=== PATIENT | male | born 1975 | race American Indian/Alaskan Native ===

== ENCOUNTER 2017-04-16 23:46 | Emergency (ER) | payer OTHER ==
[2017-04-17] MEDS ORDERED: ASPIRIN PO ONE (00:19)
[2017-04-17 00:50] LABS: Basophils # (Auto) 0.1 K/mm3 (0.0-0.1); Eosinophils # (Auto) 0.3 K/mm3 (0.0-0.4); Hematocrit 36.8 % (35.5-45.6); Hemoglobin 11.7 gm/dl (11.8-15.2); Lymphocytes # (Auto) 2.8 K/mm3 (1.2-5.4); Lymphocytes % (Auto) 27.3 % (13.4-35.0); Mean Corpuscular HGB Conc 32 % (32-34); Mean Corpuscular Volume 72 fl (84-94); Monocytes # (Auto) 0.7 K/mm3 (0.0-0.8); Red Blood Count 5.08 M/mm3 (3.65-5.03); Red Cell Distribution Width 15.2 % (13.2-15.2)
[2017-04-17 00:57] LABS: Mean Corpuscular Hemoglobin 23 pg (28-32); Platelet Count 194 K/mm3 (140-440)
--- NOTE | 2017-04-17 01:05 | Emergency Department Report ---
ED Chest Pain HPI - General Chief Complaint: Chest Pain Stated Complaint: CHEST PAIN Time Seen by Provider: 04/17/17 00:34 Source: patient Mode of arrival: Ambulatory Limitations: No Limitations - History of Present Illness Initial Comments: 42-year-old male presents to the emergency department, driving himself in to be seen, with complaint of some chest pain and bilateral arm numbness that started earlier in the day. He felt it prior to work, but it worsened once he got to work. The chest pain was a dull pain to the top of the chest. The arm numbness went down both arms but it was more of a decreased sensation than true complete numbness. There were no motor deficits. He took some Tylenol for his symptoms prior to presentation. Currently the patient is asymptomatic but says he came in to be seen because "I wanted to get checked out." He denies any shortness of breath, back pain, nausea, vomiting or diaphoresis. No recent travel or sick contacts at home. He has a past medical history of [id number] diabetes. He is an occasional tobacco smoker but denies any illicit drug use. His primary care physician is a Dr. You. Severity scale (0 -10): 7 - Related Data Previous Rx's Medication Instructions Recorded Last Taken Type HYDROcodone/APAP 7.5-325 [[place] 1 each PO Q6HR PRN #20 tablet 10/22/13 Unknown Rx 7.5/325 mg] Allergies Allergy/AdvReac Type Severity Reaction Status Date / Time No Known Allergies Allergy Unverified 10/22/13 08:23 Heart Score - HEART Score History: Slightly suspicious EKG: Normal Age: < 45 Risk factors: 1-2 risk factors Troponin: < normal limit HEART Score: 1 - Critical Actions Critical Actions: 0-3 pts:0.9-1.7%risk of adverse cardiac event.Candidate for discharge ED Review of Systems ROS: Stated complaint: CHEST PAIN Other details as noted in HPI Comment: All other systems reviewed and negative Constitutional: denies: chills, fever Eyes: denies: eye pain, eye discharge, vision change ENT: denies: ear pain, throat pain Respiratory: denies: cough, shortness of breath, wheezing Cardiovascular: chest pain. denies: palpitations Gastrointestinal: denies: abdominal pain, nausea, diarrhea Genitourinary: denies: urgency, dysuria Musculoskeletal: denies: back pain, joint swelling, arthralgia Skin: denies: rash, lesions Neurological: numbness. denies: headache ED Past Medical Hx - Past Medical History Hx Diabetes: Yes - Surgical History Hx Appendectomy: Yes - Social History Smoking Status: Current Every Day Smoker Substance Use Type: None - Medications Home Medications: Home Medications Medication Instructions Recorded Confirmed Last Taken Type HYDROcodone/APAP 7.5-325 [[place] 1 each PO Q6HR PRN #20 tablet 10/22/13 Unknown Rx 7.5/325 mg] ED Physical Exam - General Limitations: No Limitations - Other Other exam information: GENERAL: The patient is well-developed well-nourished. HENT: Normocephalic. Atraumatic. Patient has moist mucous membranes. EYES: Extraocular motions are intact. Pupils equal reactive to light bilaterally. NECK: Supple. Trachea is midline. CHEST/LUNGS: Clear to auscultation. There is no respiratory distress noted. HEART/CARDIOVASCULAR: Regular. There is no tachycardia. There is no murmur. ABDOMEN: Abdomen is soft, nontender. Patient has normal bowel sounds. There is no abdominal distention. SKIN: Skin is warm and dry. NEURO: The patient is awake, alert, and oriented. The patient is cooperative. The patient has no focal neurologic deficits. The patient has normal speech. MUSCULOSKELETAL: There is no tenderness or deformity. There is no limitation range of motion. There is no evidence of acute injury. ED Course Vital Signs 04/17/17 04/17/17 04/17/17 00:15 00:20 00:21 Temperature 98.1 F Pulse Rate 85 85 Respiratory 18 18 Rate Blood Pressure 132/89 [Left] O2 Sat by Pulse 99 99 Oximetry SHERIE score - Sherie Score Age > 65: (0) No Aspirin use within the Past 7 Days: (0) No 3 or more CAD Risk Factors: (0) No 2 or more Angina events in past 24 hrs: (1) Yes Known CAD with more than 50% Stenosis: (0) No Elevated Cardiac Markers: (0) No ST Deviation Greater than 0.5mm: (0) No SHERIE Score: 1 ED Medical Decision Making - Lab Data Result diagrams: 04/17/17 00:25 04/17/17 00:25 - EKG Data -: EKG Interpreted by Me EKG shows normal: sinus rhythm, axis, intervals, QRS complexes, ST-T waves Rate: normal - EKG Data When compared to previous EKG there are: previous EKG unavailable Interpretation: normal EKG - Radiology Data Radiology results: image reviewed interpreted by me: Chest x-ray does not show any acute process. There are no pleural effusions, obvious pneumonia and there is no pneumothorax. - Medical Decision Making The patient presented with the complaint of some chest pain that started earlier today but has resolved prior to presentation. He has normal sounding heart and lungs on auscultation. EKG is normal without ST elevation MT, ischemia or dysrhythmia. Labs have been unremarkable as well including negative troponins 2. The patient is low on the heart score criteria and has a SHERIE score of one if his pain is considered angina and 0 if not. He does not have any complaints of shortness of breath. He is low on the well's score criteria and negative on the pulmonary embolism rule out criteria. Vital signs stable throughout his ED course. He appears safe for discharge home at this time. He has been given a referral for a local mixer crane operator and has been encouraged to return to the emergency Department with any worsening of his symptoms or any acute distress. - Differential Diagnosis MT, costochondritis, GERD, pneumonia Critical Care Time: No Critical care attestation.: If time is entered above; I have spent that time in minutes in the direct care of this critically ill patient, excluding procedure time. ED Disposition Clinical Impression: Chest pain Qualifiers: Chest pain type: unspecified Qualified Code(s): R07.9 - Chest pain, unspecified Disposition: DC-01 TO HOME OR SELFCARE Is pt being admited?: No Condition: Stable Instructions: Chest Pain (ED) Additional Instructions: Please follow up with a primary care physician in the next few days if possible. I have given you a referral for a local mixer crane operator, Dr. Winchester, to follow-up regarding her chest pains. Return to the emergency department with any return or worsening of your symptoms or with any acute distress. Referrals: AMRITA WINCHESTER MD [Staff Physician] - 3-5 Days Time of Disposition: 04:38
--- NOTE | 2017-04-17 01:32 | XRay Report ---
FINAL REPORT EXAM: XR CHEST ROUTINE 2V HISTORY: Chest pain TECHNIQUE: PA and lateral views of the chest were obtained. PRIORS: None. FINDINGS: There are no focal consolidations to suggest pneumonia. No large pleural effusion. No pneumothorax. Cardiac silhouette and mediastinal structures are unremarkable. No acute osseous abnormality identified. IMPRESSION: No radiographic evidence of acute cardiopulmonary disease.
[2017-04-17 02:10] LABS: BUN/Creatinine Ratio 11; Blood Urea Nitrogen 8 mg/dL (9-20); Calcium 8.9 mg/dL (8.4-10.2); Hemolysis Index 113
[2017-04-17 06:09] VITALS: BP 126/81
== END 2017-04-17 06:09 | disposition home or self-care (01) ==
LOC: ED 23:46
DX: R07.9 Chest pain, unspecified (principal); R20.0 Anesthesia of skin; E11.9 Type 2 diabetes mellitus without complications; F17.200 Nicotine dependence, unspecified, uncomplicated; Z90.49 Acquired absence of other specified parts of digestive tract
CPT/HCPCS: 36415; 71046; 80048; 84484; 85025; 93005; 93010; 99284

== ENCOUNTER 2018-08-18 18:22 | Emergency (ER) | payer OTHER ==
--- NOTE | 2018-08-18 18:33 | Emergency Department Report ---
Blank Doc - Documentation Documentation: This is a 43-year-old male that presents with right knee pain. This initial assessment/diagnostic orders/clinical plan/treatment(s) is/are subject to change based on patient's health status, clinical progression and re- assessment by fellow clinical providers in the ED. Further treatment and workup at subsequent clinical providers discretion. Patient/guardians urged not to elope from the ED as their condition may be serious if not clinically assessed and managed. Initial orders include: 1- Patient sent to [facility] for further evaluation and treatment 2- xray knee
[2018-08-18] MEDS ORDERED: TORADOL IM ONE (19:02)
[2018-08-18] MEDS ORDERED: PERCOCET 5/325 PO ONE (19:03)
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
[2018-08-18 20:34] VITALS: BP 117/78
== END 2018-08-18 21:03 | disposition home or self-care (01) ==
LOC: ED 18:22
DX: M25.561 Pain in right knee (principal); M25.461 Effusion, right knee; E11.9 Type 2 diabetes mellitus without complications; F17.200 Nicotine dependence, unspecified, uncomplicated; Z79.899 Other long term (current) drug therapy
CPT/HCPCS: 29505; 73564; 96372; 99283; J1885

== ENCOUNTER 2018-08-25 22:31 | Emergency (ER) | payer OTHER ==
--- NOTE | 2018-08-25 23:23 | XRay Report ---
RIGHT KNEE 3 VIEWS INDICATION / CLINICAL INFORMATION: pain. COMPARISON: Right knee x-ray 08/18/2018 FINDINGS: No fracture, dislocation or right knee effusion is present. Moderate degenerative arthrosis is seen w ithin the medial femoral tibial compartment with mild degenerative arthrosis of patellofemoral and la teral femoral tibial compartments. Signer Name: Dayton Adan MD Signed: 08/25/2018 11:18 PM Workstation Name: [id number]
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
[2018-08-26 00:27] VITALS: BP 138/103
[2018-08-26] MEDS ORDERED: TORADOL PO ONE (00:45)
== END 2018-08-26 00:45 | disposition home or self-care (01) ==
LOC: ED 22:31
DX: M17.11 Unilateral primary osteoarthritis, right knee (principal); M25.561 Pain in right knee; I10 Essential (primary) hypertension; E11.9 Type 2 diabetes mellitus without complications; F17.200 Nicotine dependence, unspecified, uncomplicated; Z90.89 Acquired absence of other organs; Z79.899 Other long term (current) drug therapy; X58.XXXA Exposure to other specified factors, initial encounter; Y93.89 Activity, other specified; Y92.69 Other specified industrial and construction area as the place of occurrence of the external cause; Y99.8 Other external cause status

== ENCOUNTER 2019-03-19 18:38 | Emergency (ER) | payer BC, OTHER ==
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
--- NOTE | 2019-03-19 20:13 | Ultrasound Report ---
Scrotal ultrasound. HISTORY: Right testicular pain and swelling. FINDINGS: Right testicle measures 3.9 x 2.6 x 3.2 cm. Left testicle measures 4.5 x 2.2 x 3 cm. Both t esticles are homogeneous. Appropriate testicular flow is present. The right epididymis is enlarged and demonstrates increased blood flow. A moderate right-sided hydroc erin is present. A small amount of left-sided fluid is noted. IMPRESSION: 1. Right-sided epididymitis. 2. Hydroceles right greater than left. Signer Name: Apolinar Lopez MD Signed: 03/19/2019 8:09 PM Workstation Name: [id number]
[2019-03-19] MEDS ORDERED: KETOROLAC 30 MG/1 ML INJ IM ONE (21:26)
[2019-03-19] MEDS ORDERED: levoFLOXacin 500 MG TAB PO ONE (21:26)
[2019-03-19 22:10] LABS: Bilirubin,Urine NEG (Negative); Blood,Urine SM (Negative); Color,Urine Yellow (Yellow); Mucus,Urine FEW /HPF; Protein,Urine <15 mg/dL mg/dL (Negative); Urobilinogen,Urine < 2.0 mg/dL (<2.0)
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
[2019-03-19 23:28] VITALS: BP 142/88
== END 2019-03-19 23:39 | disposition home or self-care (01) ==
LOC: ED 18:38
DX: N45.1 Epididymitis (principal); N39.0 Urinary tract infection, site not specified; E11.9 Type 2 diabetes mellitus without complications; F17.200 Nicotine dependence, unspecified, uncomplicated; Z90.49 Acquired absence of other specified parts of digestive tract; Z79.899 Other long term (current) drug therapy
CPT/HCPCS: 81001; 93975; 96372; 99284; J1885

== ENCOUNTER 2019-04-01 21:49 | Emergency (ER) | payer BC ==
[2019-04-01 21:56] VITALS: BP 153/94
--- NOTE | 2019-04-01 22:25 | Emergency Department Report ---
Chief Complaint: Extremity Injury, Lower Stated Complaint: RT KNEE PAIN Time Seen by Provider: 04/01/19 22:19 - HPI History of Present Illness: 44-year-old Afro-Congolese male presents emerged department complaining of chronic recurrent right knee pain which was initially established several months ago after a fall at work. During that time he was a assist to have internal derangement but has yet to follow-up with orthopedic doctor for his MRI and treatment plan involving his his injury reports he has been at work today walking excessively and reports having some some aches and swelling to the knee just wanted it checked out. Reports no fall or recent blunt trauma. - ROS Review of Systems: Right knee pain all of the systems are negative except as reported in HPI - Exam Vital Signs: Vital Signs 04/01/19 21:54 Temperature 98.9 F Pulse Rate 116 H Respiratory 18 Rate Blood Pressure 153/94 O2 Sat by Pulse 99 Oximetry Physical Exam: Right knee has some effusion. Pain with Apley's grind and Roly's test. Normal varus and valgus there is some discomfort with hyperextension's extension and appears to be slight slight increased movement on the drawer test. No ecchymosis present. No popliteal mass or popliteal tenderness. Strength is 5 of 5 MSE screening note: Focused history and physical exam performed. Due to findings the following was ordered: There is no urgent or emergent processes present has been advised to continue utilization of his knee brace and ice therapy and he can continue with the anti- inflammatories. He has information for the orthopedic which he needs supposed to follow-up with ED Disposition for MSE Clinical Impression: Knee pain, right Disposition: Z-07 MED SCREENING EXAM-LEFT Is pt being admited?: No Does the pt Need Aspirin: No Condition: Stable Instructions: Arthralgia (ED)
== END 2019-04-01 23:00 | disposition left against medical advice (07) ==
LOC: ED 21:49
DX: M25.561 Pain in right knee (principal); Z91.81 History of falling
CPT/HCPCS: 99282

== ENCOUNTER 2019-10-13 09:23 | Emergency (ER) | payer OTHER, BC ==
[2019-10-13 09:34] VITALS: BP 189/111
[2019-10-13] MEDS ORDERED: KETOROLAC 30 MG/1 ML INJ IM ONE (10:28)
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
--- NOTE | 2019-10-13 11:10 | XRay Report ---
RIGHT FEMUR 2 VIEWS INDICATION: injury, fall, pain. COMPARISON: None. IMPRESSION: No acute osseous or soft tissue abnormality. Mild osteoarthritic changes are noted at the hip and knee. LUMBOSACRAL SPINE 3 VIEWS INDICATION: injury, fall, pain. COMPARISON: None. IMPRESSION: Normal alignment. Mild degenerative disc disease is identified at L3-4 and L4-5. The re maining levels and facet joints are unremarkable. The visualized sacrum and SI joints are within norm al limits. No acute osseous or soft tissue abnormality. Signer Name: Praful Mccann Jr, MD Signed: 10/13/2019 11:05 AM Workstation Name: [id number]
--- NOTE | 2019-10-13 11:57 | Cat Scan Report ---
CT head/brain wo con INDICATION / CLINICAL INFORMATION: 44 years Male; injury, fall, pain. TECHNIQUE: Routine CT head without contrast. All CT scans at this location are performed using CT dos e reduction for ALARA by means of automated exposure control. COMPARISON: The study is compared to the previous CT of 09/05/2019. FINDINGS: BRAIN / INTRACRANIAL CONTENTS: The brain demonstrates appropriate attenuation without significant int erval change from the previous CT. The ventricular system remains within normal limits in size and co nfiguration. There is continued focus of calcification along the right tentorium and anterior falx. H owever, there is no clear CT evidence of acute intracranial hemorrhage or significant mass effect. ORBITS: No significant abnormality of visualized orbits. SINUSES / MASTOIDS: No significant abnormality in the visualized paranasal sinuses or mastoid air arnulfo ls. CRANIOCERVICAL JUNCTION: No significant abnormality. ADDITIONAL FINDINGS: None. IMPRESSION: 1. There is no CT evidence of acute intracranial process. Signer Name: Gentry Ruiz MD Signed: 10/13/2019 11:52 AM Workstation Name: [id number]
== END 2019-10-13 12:15 | disposition home or self-care (01) ==
LOC: ED 09:23
DX: S39.012A Strain of muscle, fascia and tendon of lower back, initial encounter (principal); S70.11XA Contusion of right thigh, initial encounter; S09.90XA Unspecified injury of head, initial encounter; Y04.2XXA Assault by strike against or bumped into by another person, initial encounter; Y93.89 Activity, other specified; Y92.89 Other specified places as the place of occurrence of the external cause; Y99.8 Other external cause status
CPT/HCPCS: 70450; 72100; 73552; 96372; 99283; J1885